=== PATIENT | female | born 1960 | race Caucasian/White ===

== ENCOUNTER → 2016-09-24 | Outpatient (CLI) | payer OTHER ==
[~2016-09-24] MED LIST: CALCIUM 600 +1 EAC6 PO; FLINTSTONES CO1 EAC1 PO; JOLESSA 0.15 M1 EACH PO
== END | disposition disaster alternative care site (69) ==
LOC: GBCOE 07:00
DX: Z12.31 Encounter for screening mammogram for malignant neoplasm of breast (principal)
CPT/HCPCS: G0202